=== PATIENT | male | born 1970 | race Caucasian/White ===

== ENCOUNTER 2018-12-14 15:33 | Observation (INO) ==
--- NOTE | 2018-12-14 16:18 | HISTORY AND PHYSICAL ---
HISTORY OF PRESENT ILLNESS: Mr. Montes is a 48-year-old. He said 2 or 2-1/2 weeks ago he fell down some stairs and kind of had soreness in his left side. Shortly after that, developed some hematuria, gross hematuria, and then he has felt bad since that with nausea, general malaise, kind of weakness, subjective fever. PAST MEDICAL HISTORY: 1. He has had bariatric surgery per Dr. Omero Dougherty several years ago. It was successful apparently. 2. Chronic fatigue. 3. Primary hypertension. 4. Iron deficiency anemia in the past. 5. Obesity and status post bariatric surgery. 6. B12 deficiency. 7. Vitamin D deficiency. PAST SURGICAL HISTORY: 1. He has had a ventral hernia repair, I believe, upper abdomen. 2. When he is a young boy, he had left hip surgery. 3. Gastric bypass surgery. MEDICAL PROBLEMS: I think have been reviewed. Hypertension, obesity, hyperlipidemia. He does have low testosterone. He gets testosterone injections per Dr. Villagomez, I believe. ALLERGIES: To shellfish and no medications that he is aware of. FAMILY HISTORY: Noncontributory, but there is a history of hypertension, diabetes, colon cancer in maternal uncle, lung cancer in maternal uncle, breast cancer in mother. SOCIAL HISTORY: He does not smoke. He does drink some alcohol, 1 or 2 beers every day. He works for the [employer]. REVIEW OF SYSTEMS: General: He feels like he has had subjective fever. No weight gain or loss. Respiratory: No increased work of breathing or dyspnea. Cardiovascular: No chest pain or tachy palpitation. Gastrointestinal and Genitourinary: Some dysuria and gross hematuria now going on for 2 weeks. He has back pain but not really costovertebral angle pain. Musculoskeletal and Neurologic: Nothing focal. Just generally weak and feels bad. Endocrinologic and Hematologic: No significant history. PHYSICAL EXAMINATION: GENERAL: A well-developed, well-nourished white male. HEENT: Pupils are equal and round. LYMPH: No cervical or axillary or femoral adenopathy. LUNGS: Clear in all lung garcia. CARDIOVASCULAR: Regular rhythm and rate without murmur or S3. ABDOMEN: Soft, nondistended, nontender. EXTREMITIES: Without clubbing, cyanosis, or edema. He is warm to touch. DIAGNOSTIC STUDIES: He had a CT done today. Findings consistent with pyelonephritis at the left lower pole of the right kidney complicated by small right lower pole renal abscess. Incidental 8.5 mm nodule in the right lung. His blood work: Sodium 134, potassium 1.8, chloride 94, BUN is 16, and creatinine is 1.3, calcium 9.4, alkaline phosphatase 171, SGOT is 26, SGPT is 36. Amylase is 30, lipase 37. White blood cell count 17,010 hematocrit is 40, platelet count is 371,000. Differential: Left shift with 80% neutrophils. ASSESSMENT AND PLAN: 1. Pyelonephritis and it looks like a lower pole renal abscess. I am going to ask Urology to help look as well. I am going to put him on some broad-spectrum antibiotic, cover him for gram-negative and gram-positive and give him some fluids. 2. Status post gastric bypass. Aware. We will check basic electrolytes and iron studies and see how we are doing with that. 3. Incidental 8.4 mm nodule noted in the right lung lower lobe. I will probably get Pulmonology to evaluate that. cc: Aleksandar Lee MD
[2018-12-14] MEDS ORDERED: TYLENOL PO PRN (18:41)
[2018-12-14] MEDS ORDERED: ZOFRAN IV PRN (18:41)
[2018-12-14] MEDS ORDERED: ZYVOX 600 MG/D5W 600 MG/300 ML IVPB IV SCH (18:41)
[2018-12-14] MEDS ORDERED: NORCO-10 PO PRN (18:41)
[2018-12-14 19:21] LABS: BASO# 0.01 X1000 (0.0-0.2); BASO% 0.1 % (0.0-0.8); EOS# 0.01 X1000 (0.0-0.7); EOS% 0.1 % (0.0-10.0); HEMATOCRIT 38.4 % (42.0-52.0); HEMOGLOBIN 13.2 g/dL (14.0-18.0); IMM GRAN# 0.03 X1000 (0.0-0.04); IMM GRAN% 0.2 % (0.0-0.5); LYMPH# 1.41 X1000 (1.2-3.4); LYMPH% 9.1 % (20.5-51.1); MCH 30.2 PG (27-31); MCHC 34.4 g/dL (33-37); MCV 87.9 FL (81-99); MONO# 1.88 X1000 (0.11-0.59); MONO% 12.2 % (1.7-9.3); MPV 9.9 FL (7.4-10.4); NEUT% 78.3 % (42.2-75.2); PLT 384 X1000 (130-400); RBC 4.37 XMIL (4.7-6.1); WBC 15.44 X1000 (4.8-10.8)
[2018-12-14] MEDS: NS 1,000 ML IV SCH (19:27)
[2018-12-14 19:28] LABS: PTT 37.8 Seconds (22.3-41.8)
[2018-12-14] MEDS: PRILOSEC PO SCH ×2 (19:33→22:10)
[2018-12-14] MEDS: PRINZIDE 20/12.5MG PO SCH ×2 (19:33→22:10)
[2018-12-14 19:34] LABS: ALB/GLOB RATIO 0.9; ALBUMIN 3.8 g/dL (3.5-5.0); C REACTIVE PROT QUANT 282.7 mg/L (0.00-5.00); CALCIUM 8.6 mg/dL (8.8-10.2); CREATININE 1.3 mg/dL (0.7-1.2); MAGNESIUM 1.8 mg/dL (1.5-2.7); TOTAL BILIRUBIN 0.56 mg/dL (0.20-1.00); TOTAL PROTEIN 7.9 g/dL (6.3-8.3)
[2018-12-14] MEDS: LIPITOR PO SCH ×2 (19:34→22:10)
[2018-12-14 20:08] LABS: T4 7.56 ug/dL (4.60-12.00); TSH 0.74 uIUmL (0.27-4.20)
--- NOTE | 2018-12-14 20:13 | CONSULTATION ---
DATE OF CONSULTATION: 12/14/2018 REFERRING PHYSICIAN: Dr. Lee. HISTORY OF PRESENT ILLNESS: This 48-year-old male was admitted with right pyelonephritis. He states that several days ago, he started feeling bad and had right flank pain. It steadily progressed. The patient denies any previous urologic surgery. He states this has never occurred before. He states he has had a decrease in the force and caliber of his urine stream, and seems to have to push to start voiding. He states that several weeks ago he fell and injured his left side. He states he had an episode of hematuria after that. He states that is better. He is not taking any medication for his prostate or bladder. He is on testosterone cypionate 200 mg IM every 2 weeks that he self-administers. He states he has had fevers. PAST MEDICAL HISTORY: 1. Obesity. 2. Hypertension. 3. Elevated cholesterol. 4. Iron deficiency anemia. 5. Hypogonadism. CURRENT MEDICATIONS: Documented on the chart. PAST SURGICAL HISTORY: 1. Bariatric surgery several years ago. 2. Carpal tunnel surgery. 3. Left hip dislocation and replacement x2. 4. Epigastric hernia repair in September 2018. SOCIAL HISTORY: He denies tobacco use. He states he drinks 1 or 2 beers daily. ALLERGIES: He is allergic to shellfish. He states he feels tired all the time, but denies diabetes, heart disease, strokes, seizures, or recent pulmonary problems. PHYSICAL EXAMINATION: General: An obese, age apparent, normally developed white male who is flushed. He feels warm to palpation. HEENT: Normal for age. Lungs: Clear. Cardiovascular: Regular rate and rhythm. Abdomen: Obese, soft, nontender. No hepatosplenomegaly or masses. Normal bowel sounds. Back: Right CVA tenderness. Left side is normal. : Uncircumcised male. Both testes are down. Small bilateral hydroceles. Foreskin retracts. Meatus is normal. Rectal: Exam is deferred. Extremities: No clubbing, cyanosis, or edema. Neurologic: No focal deficits. LABORATORY EVALUATION: He has a white count of 15.44, hemoglobin 13.2, hematocrit of 38.4, and platelets of 384,000. Serum electrolytes have a sodium 134, potassium of 4, chloride 93, bicarb 28, BUN 16, creatinine 1.3. CT scan of the abdomen without and with contrast reveals a possible lower pole abscess, about 3 cm in diameter, versus lobar nephronia. There is perinephric stranding on the right side, consistent with pyelonephritis. IMPRESSION: 1. Right pyelonephritis, with possible early lower pole abscess versus lobar nephronia. 2. Enlarged prostate with obstructive voiding. 3. Hypogonadism. RECOMMEND: 1. Urine for culture and sensitivities. 2. Broad spectrum antibiotics. 3. Start Flomax 0.4 mg a day. 4. Will obtain renal ultrasound in 48 hours. Thank you for this consultation. cc: Tony Kong MD
[2018-12-14 20:36] LABS: SED RATE 80 mm/hr (0-15)
[2018-12-14 21:21] LABS: URINE SOURCE CLEAN CATCH
[2018-12-14 21:42] LABS: BILIRUBIN URINE NEGATIVE (NEGATIVE); BLOOD URINE SMALL (NEGATIVE); COLOR YELLOW; GLUCOSE URINE NEGATIVE (NEGATIVE); KETONE URINE NEGATIVE (NEGATIVE); LEUKOCYTES URINE SMALL (NEGATIVE); NITRITE URINE NEGATIVE (NEGATIVE); PROTEIN URINE 50 mg/dL (NEGATIVE); TURBIDITY URINE CLEAR (CLEAR); UROBILINOGEN URINE 4 mg/dL (NORMAL)
[2018-12-14 21:44] LABS: UR EPITHELIAL CELLS <10 /HPF (<10); URINE BACTERIA NEGATIVE /HPF; URINE RBC <10 /HPF (<10); URINE WBC 20-40 /HPF (<10)
[2018-12-14] MEDS: ZOSYN 4.5 GM in NS 100 ML IV SCH (22:20)
[2018-12-14] MEDS: FLOMAX PO SCH (22:20)
[2018-12-15] MEDS: ZOSYN 4.5 GM in NS 100 ML IV SCH ×5 (04:00→22:03)
[2018-12-15] MEDS: NS 1,000 ML IV SCH ×4 (04:09→23:36)
--- NOTE | 2018-12-15 07:37 | Diag Imaging Result Doc PS360 ---
CHEST-2 VIEWS - 12/15/2018 INDICATION: pulmonary nodule COMPARISON: CT from 12/14/2018 FINDINGS: The small, inferior right lower lobe pulmonary nodule is visible on CT only. Now visible by chest x-ray. IMPRESSION: Not visible by chest x-ray. Electronically signed by Prince Montoya 12/15/2018 7:35 AM
--- NOTE | 2018-12-15 08:28 | EKG Report ---
Test Performed on : 12/14/2018 9:04:26 PM Test Reason : chest pain Blood Pressure : / mmHG Vent. Rate : 077 BPM Atrial Rate : 077 BPM P-R Int : 156 ms QRS Dur : 108 ms QT Int : 384 ms P-R-T Axes : 046 -01 006 degrees QTc Int : 434 ms Normal sinus rhythm. Normal ECG When compared with ECG of 20-SEP-2018 10:47, Criteria for Inferior infarct are no longer present T wave inversion less evident in Inferior leads Confirmed by Jesus CAMPOS, Aleksandar Kemp ([id number]) on 12/15/2018 9:45:13 AM
--- NOTE | 2018-12-15 09:47 | PROGRESS NOTE ---
DATE: 12/15/2018 SUBJECTIVE: Mr. Montes does feel a little better. He still has his headache. His temperature T-max was a 100 degrees. OBJECTIVE: Vital signs: Temperature this morning is 98.4 degrees, pulse 66, respirations 16, blood pressure 135/70. HEENT: Pupils are equal round. Lungs: Clear in all lung garcia. Cardiovascular: Regular rhythm and rate without murmur or S3. Abdomen: Soft. Skin: Warm and dry. ASSESSMENT AND PLAN: 1. Right sided pyelonephritis. He could have an early lower pole abscess versus lobar nephronia, enlarged prostate, obstructive voiding. I am going to stop the Zyvox as there is an interaction with Effexor. Continue Zosyn. 2. History of hypogonadism. He is getting thyroid replacement. Check urine and blood cultures for identification and sensitivities. Check an ultrasound in about 24 hours from now and see about progress. I will put him on a regular diet and will stop the Zyvox. cc: Aleksandar Lee MD
[2018-12-15] MEDS: PRILOSEC PO SCH ×2 (09:57→20:26)
[2018-12-15] MEDS: NORCO-10 PO PRN ×2 (09:57→20:25)
[2018-12-15] MEDS: EFFEXOR XR PO SCH (10:03)
[2018-12-15] MEDS: PRINZIDE 20/12.5MG PO SCH ×2 (10:20→20:26)
[2018-12-15] MEDS: HYDROCHLOROTHIAZIDE PO SCH (10:20)
[2018-12-15] MEDS: TOPROL XL PO SCH (10:21)
--- NOTE | 2018-12-15 14:45 | Diag Imaging Result Doc PS360 ---
EXAM: CT THORAX W/O CONTRAST 12/15/2018 HISTORY: SOB TECHNIQUE: This exam was performed using automated exposure control, adjustment of mA or kV according to patient size, and/or use of iterative reconstruction technique. COMMENT: There has been gastric bypass. There are no abnormal fluid collections. There is no evidence of significant adenopathy. There is atelectasis versus fibrosis in the costophrenic sulci. There is platelike opacity in the left lower lobe. There is a noncalcified pulmonary nodule in the right lower lobe on image 71 measuring 9 mm in diameter. The regional skeleton is intact. IMPRESSION: Nonspecific right lower lobe nodule. Advise follow-up in six months. Electronically signed by Driss Hernandez 12/15/2018 2:42 PM
[2018-12-15] MEDS: LIPITOR PO SCH (20:25)
[2018-12-15] MEDS: FLOMAX PO SCH (20:26)
[2018-12-16] MEDS: ZOSYN 4.5 GM in NS 100 ML IV SCH ×5 (03:00→21:15)
[2018-12-16] MEDS: NS 1,000 ML IV SCH ×3 (03:01→21:06)
--- NOTE | 2018-12-16 03:55 | CONSULTATION ---
DATE OF CONSULTATION: 12/15/2018 REQUESTING PROVIDER: Dr. Pedro Lee. REASON FOR CONSULTATION: Help with evaluation and treatment. HISTORY OF PRESENT ILLNESS: This is 48-year-old male with a medical history of morbid obesity, chronic fatigue, primary hypertension, iron deficiency anemia, B12 deficiency and vitamin D deficiency. He presented with left flank soreness, hematuria, nausea, general malaise, weakness, and fever. He has been admitted since 12/04/2018 with pyelonephritis with possible early lower pole abscess versus lobar nephronia, and incidental 8.4 mm nodule in the right lower lobe. Patient currently is resting in bed with no acute distress noted. He states he is feeling better. He states he fell a couple weeks ago and started having soreness in his left side. Later, he developed hematuria. He reports poor appetite since this September with unintentional 20 pound weight loss. He has no cough, wheezing, shortness of breath, chest pain, palpitation, or bowel habit change. PAST MEDICAL AND SURGICAL HISTORY: 1. Morbid obesity. Current BMI 45. Status post bariatric surgery per Dr. Jamil several years ago. 2. Chronic fatigue. 3. Primary hypertension. 4. Iron deficiency anemia. 5. B12 deficiency. 6. Vitamin D deficiency. 7. Status post ventral hernia repair. 8. Left hip surgery. FAMILY HISTORY: Mother had breast cancer. One uncle has lung cancer and one uncle has colon cancer. SOCIAL HISTORY: Patient works for the [employer]. He has no history of tobacco or illicit drug use. He drinks some alcohol regularly. ALLERGIES: Shellfish. REVIEW OF SYSTEMS: A 10-point review of systems was conducted and the pertinent is listed within the HPI, otherwise noncontributory. PHYSICAL EXAMINATION: Vital Signs: Temperature 98.4, blood pressure 135/70, pulse 66, respiratory rate 16, oxygen saturation 100% on room air. General: Well developed, well nourished, morbidly obese, resting in bed with no acute distress noted. HEENT: Atraumatic. Trachea midline. Mucosa pink and moist. Respiratory: Respirations even and unlabored. Symmetrical excursion. Clear to auscultation. Cardiovascular: Regular rate and rhythm. Gastrointestinal: Normoactive bowel sounds in all 4 quadrants. Soft, nontender, obese. Extremities: No pedal edema, no cyanosis, no clubbing. Dorsalis pedis 2+ bilaterally. Neurologic: Alert and oriented x4. Speech fluent. Follows commands. LAB DATA: No lab today. IMAGING DATA: Chest x-ray today showed negative exam. CT chest without contrast revealed atelectasis, also fibrosis in the costophrenic sulci. No evidence of significant adenopathy. Plaque like opacity in the left lower lobe. Noncalcified pulmonary nodule in the right lower lobe, measuring 9 mm in diameter. ASSESSMENT: This is a 48-year-old male with a medical history of morbid obesity, status post gastric bypass surgery, chronic fatigue, primary hypertension, iron deficiency anemia, B12 deficiency, and vitamin D deficiency. He has been admitted to the [facility] with pyelonephritis on the right side with possible early lower pole abscess versus lobar nephronia and incidental 8.4 mm nodule in the right lung zone. 1. Noncalcified pulmonary nodule in the right lower lobe, measuring 9 mm in diameter. 2. Right pyelonephritis with possible early lower pole abscess versus lobar nephronia . 3. Enlarged prostate with obstructive voiding. PLAN: 1. Will follow up CT scan outpatient in 3 to 6 months. Consider PET scan and biopsy if indicated. 2. Dr. Kong is on board. 3. Further recommendations pending hospital course. Thank you for the courtesy of this consult. Dictated by STEVEN Ocampo for Angelika Gallego MD cc: STEVEN Ocampo MD [facility]
[2018-12-16] MEDS: HYDROCHLOROTHIAZIDE PO SCH (08:26)
[2018-12-16] MEDS: PRINZIDE 20/12.5MG PO SCH ×2 (08:26→21:05)
[2018-12-16] MEDS: TOPROL XL PO SCH (08:26)
[2018-12-16] MEDS: EFFEXOR XR PO SCH (08:27)
[2018-12-16] MEDS: PRILOSEC PO SCH ×2 (08:28→21:05)
[2018-12-16] MEDS: NORCO-10 PO PRN ×3 (08:36→23:55)
--- NOTE | 2018-12-16 09:39 | PROGRESS NOTE ---
DATE: 12/16/2018 SUBJECTIVE: Mr. Montes feels better. His headache is much less. Back pain has diminished quite a bit. He remains afebrile. OBJECTIVE: Temperature 98.6 degrees, pulse 70, respirations 16, blood pressure 103/55. Pupils are equal and round. Lungs are clear in all lung garcia. Cardiovascular Examination: Regular rhythm and rate without murmur or S3. Abdomen is soft. Skin is warm and dry. ASSESSMENT AND PLAN: I appreciate Dr. Yaron Kong and Dr. Gallego's help. 1. CT scan shows nonspecific right lower lobe nodule. He will get followup in about 6 months. I want him to follow up with Dr. Gallego in 6 months. 2. Pyelonephritis, appears to be improving. I will get an ultrasound today and look and see if there is any further sign of abscess but clinically, he appears to be doing a lot better. He is on Zosyn. Urine did show 100,000 colonies of gram-negative so I suspect it is Escherichia coli. We have stopped the Zyvox and he continues to improve. 3. Gets thyroid replacement. Appears to be euthyroid. We will check lab again tomorrow, electrolytes and creatinine. cc: Aleksandar Lee MD
[2018-12-16] MEDS: FOLIC ACID PO SCH ×2 (10:00→21:05)
--- NOTE | 2018-12-16 14:37 | Diag Imaging Result Doc PS360 ---
US RENAL 1 (LIMITED)-RIGHT - 12/16/2018 INDICATION: f/u right renal abnormality TECHNIQUE: COMPARISON: 12/14/2018 FINDINGS: The right kidney is normal in echotexture. No mass or fluid collection. The kidney measures 12 x 6 x 5.8 cm. Cortex measures 11 mm. No hydronephrosis. IMPRESSION: Negative exam. Electronically signed by Prince Montoya 12/16/2018 2:35 PM
--- NOTE | 2018-12-16 19:16 | PROGRESS NOTE ---
DATE: 12/16/2018 SUBJECTIVE: Mr. Montes reports he is feeling better. He denies significant right flank pain. He has not had fevers. His renal ultrasound today revealed no evidence of abnormality and no fluid collection concerning for abscess. OBJECTIVE: Vital Signs: T 98.4 degrees, P 72, BP 131/66. General: No acute distress. Abdomen: Protuberant, nontender to palpation. PERTINENT LABORATORIES: None today. PERTINENT IMAGES: Renal ultrasound per HPI. ASSESSMENT/PLAN: A 48-year-old male who has right pyelonephritis. His original CT scan revealed no evidence of stones or scarring. I have discussed with the patient that his urine culture came back as Klebsiella pneumonia which is susceptible to the right of oral agents. I will defer to Dr. Lee to send home with antibiotic, but I would recommend 2 weeks of oral antibiotic. I have also discussed with the patient that I will be happy to follow him up on outpatient basis in clinic with renal ultrasound in about 4 weeks to make sure his right kidney continues to look well. PLAN: 1. No urologic intervention needed at this point. 2. I will defer to Dr. Lee the antibiotic, but again would advise a 14-day course. 3. I will see him in the clinic in approximately 4 weeks with renal ultrasound. cc: Ricardo Villagomez MD
[2018-12-16] MEDS: LIPITOR PO SCH (21:05)
[2018-12-16] MEDS: FLOMAX PO SCH (21:05)
[2018-12-17] MEDS: ZOSYN 4.5 GM in NS 100 ML IV SCH ×2 (03:38→10:05)
[2018-12-17 05:46] LABS: BASO# 0.02 X1000 (0.0-0.2); BASO% 0.2 % (0.0-0.8); EOS# 0.08 X1000 (0.0-0.7); EOS% 0.7 % (0.0-10.0); HEMATOCRIT 34.5 % (42.0-52.0); HEMOGLOBIN 11.6 g/dL (14.0-18.0); IMM GRAN# 0.04 X1000 (0.0-0.04); IMM GRAN% 0.4 % (0.0-0.5); LYMPH# 1.84 X1000 (1.2-3.4); LYMPH% 17.2 % (20.5-51.1); MCH 30.1 PG (27-31); MCHC 33.6 g/dL (33-37); MCV 89.4 FL (81-99); MONO# 1.39 X1000 (0.11-0.59); MPV 9.8 FL (7.4-10.4); NEUT% 68.5 % (42.2-75.2); PLT 367 X1000 (130-400); RBC 3.86 XMIL (4.7-6.1); RDW 13.6 % (11.5-14.5); WBC 10.67 X1000 (4.8-10.8)
[2018-12-17 06:02] LABS: AGAP 10; BUN 10 mg/dL (8-22); CALCIUM 8.5 mg/dL (8.8-10.2); CHLORIDE 98 mmol/L (98-107); COSMO 275; ESTIMATED GFR > 60; GLUCOSE 108 mg/dL (70-104); POTASSIUM 3.7 mmol/L (3.5-5.1); SODIUM 138 mmol/L (136-145); TCO2 30 mmol/L (25-35)
[2018-12-17 08:22] VITALS: BP 140/71
[2018-12-17] MEDS: HYDROCHLOROTHIAZIDE PO SCH (09:01)
[2018-12-17] MEDS: PRINZIDE 20/12.5MG PO SCH (09:02)
[2018-12-17] MEDS: FOLIC ACID PO SCH (09:02)
[2018-12-17] MEDS: TOPROL XL PO SCH (09:02)
[2018-12-17] MEDS: PRILOSEC PO SCH (09:02)
[2018-12-17] MEDS: EFFEXOR XR PO SCH (09:02)
--- NOTE | 2018-12-17 09:31 | DISCHARGE SUMMARY ---
ADMISSION DATE: 12/14/2018 DISCHARGE DATE: 12/17/2018 HISTORY: Presented with a 2-1/2 week history after a fall. He is just continued to feel poor, developed some gross hematuria and fever, general malaise, complaining of pain really on both sides of his lower back but right costovertebral angle pain, presented to [facility]attie Gibson's is office, white count was elevated and a CT scan was consistent with pyelonephritis on the right side. Admitted to the hospital, started on broad-spectrum antibiotics. PAST MEDICAL HISTORY: 1. Obesity. 2. Hypertension. 3. Elevated cholesterol. 4. Iron deficiency anemia. 5. Hypogonadism. PAST SURGICAL HISTORY: 1. Bariatric surgery several years ago. 2. Carpal tunnel surgery. 3. Left hip dislocation replacement x2. 4. Epigastric hernia repair September 2018. HOSPITAL COURSE: CT of the abdomen with contrast revealed possible lower lobe abscess about 3 cm in diameter versus lobar nephronia. There is some perinephric stranding on the right side consistent with pyelonephritis, started on antibiotics. He showed clinical improvement. His urine culture showed no growth x2. Urine culture grew out Klebsiella pneumoniae greater than 100,000 per mL and it was sensitive to everything. It did not have extended spectrum beta lactamase resistance. So, the patient improved. He remained afebrile. Headache resolved and so I am going to let him go home on Levaquin 750 mg every day for another 7 days. He can return to work in 3 days. Today is Thursday so he should be okay to return to work on Thursday if he feels up to it. cc: Aleksandar Lee MD
== END 2018-12-17 10:15 | disposition home or self-care (01) ==
LOC: DIRADM 15:33 → INTOOBSV 15:33 → SUATTDRO 15:33 → 3S 18:29
PROVIDERS: ATTEND Emergency Medicine
CPT/HCPCS: 71020; 71046; 71250; 76775; 80048; 80053; 81001; 82607; 82746; 82948; 83735; 84436; 84443; 85025; 85610; 85651; 85730; 86140; 87040; 87077; 87088; 87186; 93005; 93010; A9270; J2020; J2543; J7030; XXXXX